=== PATIENT | female | born 1990 | race Caucasian/White ===

== ENCOUNTER 2019-05-12 10:26 | Day surgery (SDC) | payer BC ==
[~2019-05-12 10:26] MED LIST: Lactated Ringers 1,000 ML IV SCH
[2019-05-12] MEDS ORDERED: fentaNYL 100 MCG/2 ML SDV ONE (10:55)
[2019-05-12] MEDS ORDERED: Midazolam 1 MG/ML 2 ML SDV ONE (10:55)
[2019-05-12] MEDS ORDERED: Propofol 200 MG/20 ML SDV ONE (10:55)
[2019-05-12] MEDS ORDERED: Lidocaine 2% 5 ML SDV ONE (10:58)
--- NOTE | 2019-05-12 11:32 | PCM.PREANE ---
Preanesthetic Assessment - Anesthesia/Transfusion/Family Hx Anesthesia History: Prior Anesthesia Without Reaction Family History of Anesthesia Reaction: No Transfusion History: No Prior Transfusion(s) Intubation History: Unknown - Review of Systems General: No Symptoms Pulmonary: No Symptoms Cardiovascular: No Symptoms Gastrointestinal: No Symptoms Neurological: No Symptoms Other: Reports: None - Physical Assessment NPO Status Date: 05/11/19 NPO Status Time: 20:00 Vital Signs: Last Vital Signs Temp 36.9 C 05/12/19 10:40 Pulse 78 05/12/19 10:40 Resp 18 05/12/19 10:40 BP 104/70 05/12/19 10:40 Pulse Ox 100 05/12/19 10:40 Height: 5 ft 5.5 in Weight: 70.76 kg ASA Class: 1 Mental Status: Alert & Oriented x3 Airway Class: Mallampati = 1 Dentition: Reports: Normal Dentition Thyro-Mental Finger Breadths: 3 Mouth Opening Finger Breadths: 2 ROM/Head Extension: Full Lungs: Clear to Auscultation, Normal Respiratory Effort Cardiovascular: Regular Rate, Regular Rhythm - Lab Values: Laboratory Last Values WBC 6.20 K/uL (4.0-11.0) 05/12/19 10:58 RBC 4.61 M/uL (4.30-5.90) 05/12/19 10:58 Hgb 13.7 g/dL (12.0-16.0) 05/12/19 10:58 Hct 41.1 % (36.0-46.0) 05/12/19 10:58 MCV 89.2 fL (80.0-98.0) 05/12/19 10:58 MCH 29.7 pg (27.0-32.0) 05/12/19 10:58 MCHC 33.3 g/dL (31.0-37.0) 05/12/19 10:58 RDW Std Deviation 43.1 fl (28.0-62.0) 05/12/19 10:58 RDW Coeff of Rocky 13 % (11.0-15.0) 05/12/19 10:58 Plt Count 292 K/uL (150-400) 05/12/19 10:58 MPV 9.70 fL (7.40-12.00) 05/12/19 10:58 Nucleated RBC % 0.0 /100WBC 05/12/19 10:58 Nucleated RBCs # 0 K/uL 05/12/19 10:58 HCG, Qual NEGATIVE (NEG) 05/12/19 10:58 - Allergies Allergies/Adverse Reactions: Allergies Allergy/AdvReac Type Severity Reaction Status Date / Time No Known Allergies Allergy Verified 05/09/19 09:43 - Blood Blood Available: No - Anesthesia Plan Pre-Op Medication Ordered: None - Acknowledgements Anesthesia Type Planned: MAC Pt an Appropriate Candidate for the Planned Anesthesia: Yes Alternatives and Risks of Anesthesia Discussed w Pt/Guardian: Yes Pt/Guardian Understands and Agrees with Anesthesia Plan: Yes PreAnesthesia Questionnaire [employer] History: Reports: , Other (See Below) (h/o ovarian cyst) Musculoskeletal History: Reports: Back Pain, Chronic Psychiatric History: Reports: Anxiety, Depression Dermatologic History: Reports: Eczema - Past Surgical History Head Surgeries/Procedures: Reports: None Female Surgical History: Reports: Breast Biopsy - SUBSTANCE USE Smoking Status *Q: Never Smoker Recreational Drug Use History: No - HOME MEDS Home Medications: Home Meds . [No Known Home Meds] 05/09/19 [History] - CURRENT (IN HOUSE) MEDS Current Meds: Current Medications Lactated Ringer's (Ringers, Lactated) 1,000 mls @ 100 mls/hr IV ASDIRECTED [facility] Last Admin: 05/12/19 10:10 Dose: 100 mls/hr Discontinued Medications Fentanyl (Sublimaze) Confirm Administered Dose 100 mcg .ROUTE .STK-MED ONE Stop: 05/12/19 10:56 Lidocaine (Xylocaine-Mpf 2%) Confirm Administered Dose 5 ml .ROUTE .STK-MED ONE Stop: 05/12/19 10:59 Midazolam HCl (Versed 1 Mg/Ml) Confirm Administered Dose 2 mg .ROUTE .STK-MED ONE Stop: 05/12/19 10:56 Propofol (Diprivan 20 Ml) Confirm Administered Dose 400 mg .ROUTE .STK-MED ONE Stop: 05/12/19 10:56
[2019-05-12] MEDS ORDERED: Lidocaine 1% with EPINEPHrine 1:100,000 20 ML MDV ONE (11:48)
--- NOTE | 2019-05-12 12:56 | PCM.POSTAN ---
POST ANESTHESIA ASSESSMENT - MENTAL STATUS Mental Status: Alert, Oriented - VITAL SIGNS Vital Signs: Last Vital Signs Temp 36.9 C 05/12/19 10:40 Pulse 78 05/12/19 10:40 Resp 18 05/12/19 10:40 BP 104/70 05/12/19 10:40 Pulse Ox 100 05/12/19 10:40 - RESPIRATORY Respiratory Status: Respiratory Rate WNL, Airway Patent, O2 Saturation Stable - CARDIOVASCULAR CV Status: Pulse Rate WNL, Blood Pressure Stable - GASTROINTESTINAL GI Status: No Symptoms - PAIN Pain Score: 0 - POST OP HYDRATION Hydration Status: Adequate & Stable - OBSERVATIONS Free Text/Narrative:: No anesthesia problems, patient skipped recovery room stage of postoperative care.
--- NOTE | 2019-05-12 13:37 | PCM48HPAN ---
Post Anesthesia Note - EVALUATION WITHIN 48HRS OF ANESTHETIC Vital Signs in Normal Range: Yes Patient Participated in Evaluation: Yes Respiratory Function Stable: Yes Airway Patent: Yes Cardiovascular Function Stable: Yes Hydration Status Stable: Yes Pain Control Satisfactory: Yes Nausea and Vomiting Control Satisfactory: Yes Mental Status Recovered: Yes Vital Signs: Last Vital Signs Temp 36.4 C 05/12/19 12:48 Pulse 80 05/12/19 13:08 Resp 16 05/12/19 13:08 BP 97/60 05/12/19 13:08 Pulse Ox 100 05/12/19 13:08 - COMMENTS/OBSERVATIONS Free Text/Narrative:: No anesthesia problems
--- NOTE | 2019-05-12 13:56 | PCM.OPNOTE ---
- General Post-Op/Procedure Note Date of Surgery/Procedure: 05/12/19 Operative Procedure(s): Loop electrosurgical excision procedure Findings: Normal-appearing cervix Pre Op Diagnosis: DEVI 2 on cervical biopsy Post-Op Diagnosis: DEVI 2 on cervical biopsy Anesthesia Technique: MAC Primary Surgeon: Marie Mckinney Pathology: Cervix Fluid Replacement, Intraop: 1,000 EBL in mLs: 5 Complications: None Condition: Good
--- NOTE | 2019-05-12 17:28 | OR ---
SURGEON: Marie Mckinney MD DATE OF PROCEDURE: 05/12/2019 PREOPERATIVE DIAGNOSIS: Cervical intraepithelial neoplasia 2 on cervical biopsy. POSTOPERATIVE DIAGNOSIS: Cervical intraepithelial neoplasia 2 on cervical biopsy. PROCEDURE: Loop electrosurgical excision procedure of cervical tissue. FINDINGS: Normal-appearing cervix and vagina. DESCRIPTION OF PROCEDURE: The patient was taken to the operating room where MAC was obtained. She was placed in the dorsal lithotomy position with legs in Yellofins stirrups. A time- out procedure was performed. An insulated Graves speculum was inserted into the vagina. Air evacuation was attached to the speculum. With a large wire loop at 40 cutting, 60 coagulation, a sample of the cervix was obtained. The base of the LEEP bed was coagulated to hemostasis with the Bovie and Monsel's solution was applied. Hemostasis was obtained. The patient tolerated the procedure well. All instrument and sponge counts were correct x2. [id number] / MODL /[id number]
== END 2019-05-12 14:02 | disposition home or self-care (01) ==
LOC: MW.SDS 10:26
PROVIDERS: ATTEND Obstetrics & Gynecology
DX: N87.1 Moderate cervical dysplasia (principal)
CPT/HCPCS: 36415; 57522; 84703; 85027; J2001; J2250; J2704; J3010; J7120; 00940; 88307